=== PATIENT | male | born 1960 | race Caucasian/White ===

== ENCOUNTER → 2018-03-23 | Outpatient (CLI) | payer OTHER ==
[~2018-03-23] MED LIST: ALLO300T PO; ESCI10TA10 PO; LISI-167 PO; METF750T2 PO; ROSU5TAB PO
[2018-03-23 08:57] LABS: ALANINE AMINOTRANSFERASE 27 U/L (12-78); ALBUMIN 3.9 g/dL (3.4-5.0); ANION GAP 8 mmol/L (5-15); CALCIUM 9.1 mg/dL (8.5-10.1); CHLORIDE 107 mmol/L (98-107); CREATININE 1.67 mg/dL (0.7-1.3)
[2018-03-23 08:59] LABS: ALKALINE PHOSPHATASE 71 U/L (45-117); BILIRUBIN,TOTAL 0.4 mg/dL (0.2-1.0); TOTAL PROTEIN 7.9 g/dL (6.4-8.2)
== END | disposition home or self-care (01) ==
LOC: STAR 07:43
PROVIDERS: ATTEND Surgery
DX: Z01.818 Encounter for other preprocedural examination (principal); K42.9 Umbilical hernia without obstruction or gangrene
CPT/HCPCS: 36415; 80053; 93005

== ENCOUNTER 2018-04-01 08:45 | Day surgery (SDC) | payer OTHER ==
[~2018-04-01] VITALS: Ht 182.9 cm; Wt 131.6 kg
[2018-04-01] MEDS ORDERED: LACTATED RINGERS 1,000 ML IV SCH (09:21)
[2018-04-01 09:45] VITALS: BP 129/82
[2018-04-01] MEDS ORDERED: ROSU20TA PO (09:50)
[2018-04-01] MEDS ORDERED: LINA5TAB PO (09:50)
[2018-04-01] MEDS ORDERED: EMPA25TA PO (09:50)
[2018-04-01] MEDS ORDERED: EPINEPHRINE 1 MG/ML, 1ML ONE (10:26)
[2018-04-01] MEDS ORDERED: BUPIVACAINE/PF 0.5% ONE (10:26)
[2018-04-01] MEDS ORDERED: MIDAZOLAM 1 MG/ML, 2ML ONE (10:42)
[2018-04-01] MEDS ORDERED: FENTANYL PF 250 MCG/5ML ONE (10:42)
[2018-04-01] MEDS ORDERED: BUPIVACAINE/PF-EPI 0.5% 1:200K INFIL ONE (11:20)
[2018-04-01] MEDS ORDERED: SUGAMMADEX 200 MG/2 ML IVPush ONE (12:30)
[2018-04-01] MEDS ORDERED: ONDANSETRON 2MG/ML, 2ML IV PRN (13:00)
[2018-04-01] MEDS ORDERED: MEPERIDINE/PF 25MG/0.5ML IVPush PRN (13:00)
[2018-04-01] MEDS ORDERED: ONDANSETRON ODT 8 MG PO PRN (13:00)
[2018-04-01] MEDS ORDERED: ACETAMINOPHEN 325 MG TABLET PO PRN (13:00)
[2018-04-01] MEDS ORDERED: OXYcodone 5 MG/5 ML ORAL.SOL UDC PO PRN (13:00)
[2018-04-01] MEDS ORDERED: MORPHINE SULFATE 4 MG/ML, 1ML IVPush PRN (13:00)
[2018-04-01] MEDS ORDERED: KETOROLAC 30 MG/1 ML IV PRN (13:00)
[2018-04-01] MEDS ORDERED: LABETALOL 5MG/ML, 20ML IV PRN (13:00)
[2018-04-01] MEDS ORDERED: hydrALAzine 20 MG/ML, 1ML IV PRN (13:00)
[2018-04-01] MEDS ORDERED: HYDROmorphone 1 MG/ML, 1ML IV PRN (13:00)
[2018-04-01] MEDS ORDERED: FENTANYL PF 100 MCG/2ML ONE ×2 (13:07→13:29)
[2018-04-01] MEDS ORDERED: ACETAMINOPHEN 650 MG/20.3 ML UDC ONE (13:29)
[2018-04-01] MEDS ORDERED: KETOROLAC 30 MG/1 ML ONE (13:29)
[2018-04-01] MEDS ORDERED: OXYcodone 5 MG/5 ML ORAL.SOL UDC ONE (13:30)
[2018-04-01] MEDS: FENTANYL PF 100 MCG/2ML IV PRN ×4 (13:37→14:03)
[2018-04-01] MEDS ORDERED: GLYCOPYRROLATE 0.2MG/1ML, 5ML ONE (16:13)
[2018-04-01] MEDS ORDERED: ONDANSETRON 2MG/ML, 2ML ONE (16:13)
[2018-04-01] MEDS ORDERED: PROPOFOL 10 MG/ML, 20ML ONE (16:13)
[2018-04-01] MEDS ORDERED: ROCURONIUM 10 MG/ML,10ML ONE (16:13)
[2018-04-01] MEDS ORDERED: CEFAZOLIN 1,000 MG ONE (16:13)
[2018-04-01] MEDS ORDERED: EPHEDRINE 50 MG/ML, 1ML ONE (16:13)
[2018-04-01] MEDS ORDERED: DEXAMETHASONE 4 MG/ML, 1ML ONE (16:13)
== END 2018-04-01 15:15 | disposition home or self-care (01) ==
LOC: OUT 08:45
PROVIDERS: ATTEND Surgery
DX: K42.9 Umbilical hernia without obstruction or gangrene (principal); E66.01 Morbid (severe) obesity due to excess calories; E11.9 Type 2 diabetes mellitus without complications; I10 Essential (primary) hypertension; E78.5 Hyperlipidemia, unspecified; F32.9 Major depressive disorder, single episode, unspecified; F17.210 Nicotine dependence, cigarettes, uncomplicated; M10.9 Gout, unspecified; Z68.39 Body mass index [BMI] 39.0-39.9, adult; Z79.899 Other long term (current) drug therapy; Z72.89 Other problems related to lifestyle
CPT/HCPCS: 49652; 82962; J0171; J0690; J1100; J1885; J2250; J2405; J2704; J3010; J3490; J7120; S2900; C1781

== ENCOUNTER → 2020-07-01 | Outpatient (CLI) | payer OTHER ==
[~2020-07-01] MED LIST changes: +EMPA25TA PO; +LINA5TAB PO; -METF750T2 PO; +METF750T42 PO; +ROSU20TA2 PO
== END | disposition home or self-care (01) ==
LOC: CVU 14:32
PROVIDERS: ATTEND Internal Medicine Cardiovascular Disease
DX: I08.3 Combined rheumatic disorders of mitral, aortic and tricuspid valves (principal); I11.9 Hypertensive heart disease without heart failure; I25.5 Ischemic cardiomyopathy
CPT/HCPCS: 93306

== ENCOUNTER 2021-01-20 08:05 | Outpatient (CLI) | payer OTHER | END 2021-01-20 23:59 | disposition home or self-care (01) | LOC: RAD 08:05 | PROVIDERS: ATTEND Internal Medicine | DX: I12.9 Hypertensive chronic kidney disease with stage 1 through stage 4 chronic kidney disease, or unspecified chronic kidney disease (principal); R94.4 Abnormal results of kidney function studies; E66.8 Other obesity; E11.29 Type 2 diabetes mellitus with other diabetic kidney complication; E11.22 Type 2 diabetes mellitus with diabetic chronic kidney disease; N18.30 Chronic kidney disease, stage 3 unspecified | CPT/HCPCS: 76770 ==